=== PATIENT | female | born 1930 | race Caucasian/White ===

== ENCOUNTER 2016-10-03 08:01 | Emergency (ER) | payer MEDICARE, OTHER ==
[2016-10-03 08:57] LABS: BASOPHIL 0.1 % (0-2); EOSINOPHIL 0.1 % (0-7); HCT 39.2 % (37.0-47.0); HGB 12.6 g/dl (12.5-16.0); MCH 30.9 pg (25.0-31.0); MCHC 32.1 g/dL (32.0-36.0); MCV 96.1 fL (78.0-100.0); MONOCYTE 8.9 % (0-12); MPV 9.7 fL (6.0-9.5); NEUTROPHIL 86.9 % (41-80); PLT 265 K/uL (150-400); RBC 4.08 M/uL (4.20-5.40); RDW 13.4 % (11.5-14.0); WBC 14.1 K/uL (4.0-10.5)
[2016-10-03 11:18] LABS: ALBUMIN 4.1 g/dL (3.4-4.8); BILIRUBIN - TOTAL 0.3 mg/dL (0.1-1.0); CREATININE 0.6 mg/dL (0.5-1.0); POTASSIUM 4.1 mmol/L (3.5-5.1); TOTAL PROTEIN 7.1 g/dL (6.4-8.3)
[2017-01-26] MEDS ORDERED: K-DUR20 MEQ PO (13:05)
[2017-01-26] MEDS ORDERED: SINEMET 25-1001 EACH PO (13:05)
[2017-01-26] MEDS ORDERED: ACETAMINOPHEN325 MG PO (13:06)
[2017-01-26] MEDS ORDERED: AUGMENTIN 875-1 EACH PO (13:06)
== END 2016-10-03 16:18 | disposition home or self-care (01) ==
LOC: FER 08:01
PROVIDERS: Emergency Medicine
DX: S43.005A Unspecified dislocation of left shoulder joint, initial encounter (principal); F03.90 Unspecified dementia, unspecified severity, without behavioral disturbance, psychotic disturbance, mood disturbance, and anxiety; I10 Essential (primary) hypertension; E78.00 Pure hypercholesterolemia, unspecified; Z79.899 Other long term (current) drug therapy; W19.XXXA Unspecified fall, initial encounter; Y92.129 Unspecified place in nursing home as the place of occurrence of the external cause
CPT/HCPCS: 36415; 70450; 71275; 72125; 72170; 73030; 73080; 80053; 84484; 85025; 85379; 93005; Q9967